=== PATIENT | female | born 1985 | race Caucasian/White ===

== ENCOUNTER 2017-01-27 09:01 | Emergency (ER) | payer BC ==
[~2017-01-27 09:01] MED LIST: COLACE100 MG PO; FEOSOL45 MG; IRON SUPPLEMEN325 MG PO; MOTRIN800 MG PO; NORCO 5/3251 TAB PO; PERCOCET 5/3251 TAB PO; PRENATAL1 EACH PO; PRENATAL1 TAB; PRILOSEC2.5 MG PO; STOOL SOFTENER; ZANTAC150 MG
[2017-01-27] MEDS ORDERED: NO HOME MEDS (09:23)
[2017-01-27 09:41] LABS: BASO % 0.2 % (0-2); EOS % 2.6 % (0-7); EOSINOPHIL ABSOLUTE COUNT 0.2 tho/cmm (0.0-0.7); HCT-HEMATOCRIT 41.8 % (34.0-49.0); HGB-HEMOGLOBIN 14.3 gm/dl (12.0-15.5); IMMATURE GRANULOCYTES ABSOLUTE 0.02 tho/cmm (0-0.03); IMMATURE GRANULOCYTES PERCENT 0.3 % (0-0.3); LYMPH % 51.9 % (20-45); MCH (MEAN CORPUSCULAR HGB) 30.4 pg (28.0-32.0); MCHC MEAN CORPUSCULAR HGB CONC 34.2 % (32.0-36.0); MCV (MEAN CELL VOLUME) 88.9 fl (82.0-96.0); MEAN PLATELET VOLUME 10.4 cmc (9.4-12.4); MONO % 9.6 % (0-12); MONOCYTE ABSOLUTE COUNT 0.6 tho/cmm (0.0-1.2); NEUTROPHIL ABSOLUTE COUNT 2.1 tho/cmm (1.6-8.0); NEUTROPHIL-AUTOMATED 2.1 tho/cmm (1.6-8.0); NEUTROPHILS % 35.4 % (40-80); PLATELET COUNT 283 tho/cmm (150-450); RED CELL DISTRIBUTION WIDTH 12.8 % (12.4-16.4); WHITE BLOOD COUNT 5.8 tho/cmm (4.0-10.0)
[2017-01-27 09:47] LABS: ANION GAP 12 mmol/L (0-20); BLOOD UREA NITROGEN 14 mg/dl (6-24); CALCIUM 9.1 mg/dl (8.5-10.5); CARBON DIOXIDE-VENOUS 27 mmol/L (22-32); CHLORIDE 107 mmol/l (96-110); CREATININE 0.85 mg/dl (0.50-1.10); GLUCOSE 105 mg/dL (70-110); SODIUM 142 mmol/L (135-145); eGFR VALUE FOR BLACK >90 mL/Min
[2017-01-27 09:53] LABS: PREGNANCY-SERUM NEGATIVE (NEGATIVE)
[2017-01-27 10:14] LABS: URINE BILIRUBIN NEGATIVE (NEG); URINE BLOOD MODERATE (NEG); URINE GLUCOSE (UA) NEGATIVE (NEG); URINE KETONE SMALL (NEG); URINE LEUKOCYTE ESTERASE POSITIVE (NEG); URINE NITRITE NEGATIVE (NEG); URINE PROTEIN MODERATE (NEG)
[2017-01-27 10:21] LABS: URINE APPEARANCE CLOUDY; URINE COLOR ORANGE
[2017-01-27] MEDS ORDERED: MIRALAX17 G2 PO (10:57)
[2017-01-27] MEDS ORDERED: ZOFRAN ODT4 MG PO (10:57)
[2017-01-27] MEDS ORDERED: PERCOCET 5-3251 EACH PO (10:57)
[2017-01-27 10:58] LABS: URINE BACTERIA 3+
[2017-01-27] MEDS ORDERED: FLOMAX0.4 M1 PO (10:58)
[2017-01-27] MEDS ORDERED: CIPRO250 M2 PO (11:06)
== END 2017-01-27 11:24 ==
LOC: EDMED 09:01
PROVIDERS: Emergency Medicine
DX: N20.0 Calculus of kidney (principal); R82.71 Bacteriuria; Z88.0 Allergy status to penicillin; Z87.442 Personal history of urinary calculi
CPT/HCPCS: J1885; J2405; J7030